=== PATIENT | female | born 1960 | race Caucasian/White ===

== ENCOUNTER 2019-09-27 13:25 | Emergency (ER) | payer BC, SELFPAY ==
--- NOTE | 2019-09-27 13:34 | ED.LOWEXIN ---
HPI - Extremity Injury (Lower) General Chief Complaint: Extremity Injury, Lower Stated Complaint: rolled left ankle, wound R knee Time Seen by Provider: 09/27/19 13:30 Source: patient Mode of arrival: Ambulatory Limitations: no limitations History of Present Illness HPI Narrative: 59-year-old female nonsmoker with noncontributory medical history presents with a chief complaint of left ankle injury suffered 1 hour prior to arrival. She states she was walking and inverted her left ankle and then fell forward, also scraping her right knee. She denies any head neck or back pain. She has full recall of the event. She denies any numbness, tingling or weakness. Her tetanus is current. She has pain with ambulation and improvement with rest. Related Data Allergies Allergy/AdvReac Type Severity Reaction Status Date / Time Sulfa (Sulfonamide Allergy Verified 09/27/19 13:45 Antibiotics) Review of Systems Constitutional Constitutional: Denies chills, Denies fatigue, Denies fever(s), Denies frequent falls, Denies lethargy and Denies weakness Eyes Eyes: Denies change in vision, Denies eye discharge, Denies irritation and Denies loss of vision ENT Ears, Nose, Mouth, and Throat: Denies change in voice, Denies dizziness, Denies neck pain, Denies sore throat and Denies throat swelling Cardiovascular Cardiovascular: Denies chest pain, Denies irregular heart rhythm, Denies lightheadedness, Denies palpitations, Denies dyspnea, Denies dyspnea on exertion and Denies orthopnea Respiratory Respiratory: Denies cough, Denies dyspnea, Denies dyspnea on exertion and Denies wheezing Gastrointestinal Gastrointestinal: Denies abdominal pain, Denies change in bowel habits, Denies diarrhea, Denies nausea and Denies vomiting Genitourinary Genitourinary: Denies hematuria, Denies flank pain, Denies urinary incontinence and Denies urinary urgency Musculoskeletal Musculoskeletal: Denies back pain, Reports joint swelling, Reports limited range of motion, Denies muscle weakness, Denies neck pain, Denies numbness and Denies tingling Integumentary/Breasts Skin/Breast: Denies pruritus, Denies erythema, Denies rash and Reports wounds Neurologic Neurologic: Denies behavioral changes, Denies confusion, Denies dizziness, Denies frequent falls, Denies loss of vision, Denies numbness, Denies tingling and Denies weakness Psychiatric Psychiatric: Denies anxiety, Denies behavioral changes, Denies confusion, Denies depression, Denies homicidal ideation and Denies suicidal ideation Endocrine Endocrine: Denies fatigue, Denies flushing and Denies palpitations Hematologic/Lymphatic Hematologic/Lymphatic: Denies easy bruising Allergic/Immunologic Allergic/Immunologic: Denies urticaria, Denies throat swelling and Denies wheezing Patient History Social History Smoking Status: Unknown if ever smoked Exam Narrative Exam Narrative: GEN: 59-year-old female appears stated age AOx3 and in mild distress EYES: Pupils are equal, round, and reactive to light and accommodation. Extraoccular muscles are intact bilaterally. There is no subconjunctival hemorrhage or exudate. CHEST: Lungs are clear to auscultation bilaterally and free of wheezes, rales, or rhonchi. Heart rate is regular rhythm, there are no murmurs, clicks, rubs, or gallops. There is no chest wall tenderness. ABD: Abdomen is soft and nontender. There is no guarding or rebound. Bowel sounds are normal in all 4 quadrants. There is no mass or organomegaly. EXT: Left ankle has decreased range of motion secondary to pain with noted swelling over lateral malleolus. Closed and neurovascularly intact. Additional superficial abrasion on anterior right knee overlying patella with no bony tenderness SKIN: Warm, pink, and dry. No erythema or rash Initial Vital Signs Initial Vital Signs: Vital Signs Temperature 98.5 F 09/27/19 13:40 Pulse Rate 92 H 09/27/19 13:40 Respiratory Rate 14 09/27/19 13:40 Blood Pressure 143/82 H 09/27/19 13:40 Pulse Oximetry 100 09/27/19 13:40 Procedures Orthopedic Splinting/Casting Injury #1: Side: left Lower Extremity Injury Location: ankle Lower Extremity Immobilizer: AirCast Course Orders Ordered: ED Orders 09/27/19 13:38 XR ankle LT min 3V Stat Discontinued Medications Bacitracin (Bacitracin) 1 applic TOP NOW ONE Stop: 09/27/19 14:27 Bacitracin (Bacitracin) 1 applic TOP NOW ONE Stop: 09/27/19 14:33 Consultations Consultation #1: On-call orthopedics consulted. Recommends air splint if possible, weight-bearing as tolerated, follow-up in his clinic Vital Signs Vital signs: Vital Signs - 8 hr 09/27/19 13:40 09/27/19 14:28 Temperature 98.5 F 97.2 F L Pulse Rate 92 H 61 Respiratory Rate 14 16 Blood Pressure 143/82 H 135/68 Pulse Oximetry 100 98 Discharge Plan Departure Patient Disposition: Home Clinical Impression: Ankle sprain and strain Instructions: DI for Ankle Sprain Activity Restrictions/Additional Instructions: *You have been diagnosed with [left ankle sprain with possible small avulsion fracture] *What to do: *Take medications as directed: Tylenol or Motrin for pain *Follow up with [facility], call for an appointment. Let them know you were seen in the Emergency Department and that we ask that you be seen in follow up *Return to ER if you should have any new, worsening or concerning symptoms Weight-bearing as tolerated Referrals: Gera Gerardo MD [Physician] - ED Sign-out [facility]ign ED Attending Shannonature Attestation: I was immediately available in the department for consultation. This documentation has been reviewed and I agree with assessment and plan. Supervised by Gary Jay DO
--- NOTE | 2019-09-27 13:38 | DI.RAD.S_ITS ---
PROCEDURE: XR ANKLE LT MIN 3V INDICATIONS: lateral ankle pain, swelling, inversion injury TECHNIQUE: 3 views of the ankle were acquired. COMPARISON: None. FINDINGS: Bones: There may be a subtle avulsion fracture at the lateral malleolus. Soft tissues: There is lateral malleolar soft tissue swelling. There is a small tibiotalar joint effusion. Achilles tendon appears normal. IMPRESSION: Questionable subtle avulsion fracture of the lateral malleolus and overlying soft tissue swelling. Approved by: Deanne De Los Santos M.D. on 09/27/2019 at 13:59
[2019-09-27 13:40] VITALS: BP 143/82; PULSE 92; RESP 14; TEMP 36.9; O2SAT 100; BMI 23.6
[2019-09-27 14:28] VITALS: BP 135/68; PULSE 61; RESP 16; TEMP 36.2; O2SAT 98
== END 2019-09-27 14:43 | disposition home or self-care (01) ==
PROVIDERS: Emergency Provider Emergency Medicine
DX: S93.402A Sprain of unspecified ligament of left ankle, initial encounter (principal); S96.912A Strain of unspecified muscle and tendon at ankle and foot level, left foot, initial encounter; W18.42XA Slipping, tripping and stumbling without falling due to stepping into hole or opening, initial encounter
CPT/HCPCS: 73610; 99283

== ENCOUNTER 2023-10-28 10:00 | Emergency (ER) | payer BC, SELFPAY ==
--- NOTE | 2023-10-28 10:06 | DI.RAD.S_ITS ---
PROCEDURE: XR CHEST 1V INDICATIONS: chest pain TECHNIQUE: One view of the chest was acquired. COMPARISON: None. FINDINGS: Surgical changes and devices: None. Lungs and pleura: Lungs are clear. No pleural effusions or pneumothorax. Mediastinum: Mediastinal contours appear normal. Heart size is normal. Bones and chest wall: No suspicious bony lesions. Overlying soft tissues appear unremarkable. IMPRESSION: No acute cardiopulmonary abnormality is seen. Dictated by: Gera Claudio M.D. on 10/28/2023 at 9:36 Approved by: Gera Claudio M.D. on 10/28/2023 at 9:37
[2023-10-28 10:07] VITALS: BP 139/75; PULSE 90; RESP 18; TEMP 36.3; O2SAT 100; BMI 23.0
[2023-10-28 10:30] LABS: Add Manual Diff / Slide Review NO; Basophils Absolute Auto 100 /uL (0-100); Basophils Percent Auto 0.8 % (0-2); Eosinophils Absolute Auto 100 /uL (0-450); Eosinophils Percent Auto 1.5 % (2-4); Hematocrit 43.9 % (36-46); Hemoglobin 14.3 g/dL (12.0-16.0); Lymphocytes Absolute Auto 1900 /uL (1100-4500); Mean Corpuscular HGB Conc 32.6 % (30-36); Mean Corpuscular Hemoglobin 28.1 PG (26-34); Monocytes Absolute Auto 600 /uL (0-900); Monocytes Percent Auto 7.3 % (3-14); Neutrophils Absolute Auto 5700 /uL (1500-7000); Neutrophils Percent Auto 67.4 % (50-75); Platelet Count 203 X10^3/uL (150-400); Red Cell Distribution Width 12.7 % (11.6-14.8); White Blood Cell Count 8.4 X10^3/uL (4.5-11.0)
--- NOTE | 2023-10-28 10:33 | ED.CHESTPAIN ---
HPI - Chest Pain General Chief Complaint: Chest Pain Stated Complaint: chest and mid back pain Time Seen by Provider: 10/28/23 10:05 Source: patient Mode of arrival: Ambulatory Limitations: no limitations History of Present Illness HPI narrative: Patient is a 63-year-old female who is here for evaluation of chest and back discomfort. She states her symptoms started this morning. She woke up relatively asymptomatic. She stated that she felt like she had some gas pains. She then had 2 bowel movements. Then the chest discomfort started. Not particularly worse with palpation in the front of her chest but she states when they did the chest x-ray prior to my evaluation the board for the chest x-ray did cause her to have the back pain. No abdominal pain. No nausea or vomiting. No fevers. No lower extremity swelling. No shortness of breath. No cough. Related Data Previous Rx's Medication Instructions Recorded lidocaine 4 % topical gel 1 applic topical BID-QID PRN pain 12/28/20 #30 grams Allergies Allergy/AdvReac Type Severity Reaction Status Date / Time Sulfa (Sulfonamide Allergy Verified 10/19/21 18:49 Antibiotics) Review of Systems Review of Systems Narrative: See HPI Patient History Social History Smoking Status: Never smoker Smoking Status: Never smoker alcohol intake frequency: holidays/special occasions only Substance Use Type: does not use Exam Initial Vital Signs Initial Vital Signs: Vital Signs Temperature 97.4 F L 10/28/23 10:07 Pulse Rate 90 10/28/23 10:07 Respiratory Rate 18 10/28/23 10:07 Blood Pressure 139/75 10/28/23 10:07 Pulse Oximetry 100 10/28/23 10:07 Oxygen Delivery Method Room Air 10/28/23 10:07 Const General: cooperative, comfortable and No ill appearing HENWA Head: normal to inspection and normocephalic Resp Effort & Inspection: normal respiratory effort Auscultation: clear to auscultation bilaterally Cardio Rate: regular rate Rhythm: regular rhythm Skin General: no rashes or lesions noted Neuro General: patient alert, patient awake and moves all extremities Speech: speech normal Extrem General: normal to inspection and capillary refill normal Course Orders Ordered: ED Orders 10/28/23 10:06 XR chest 1V Stat EKG-12 Lead Stat 10/28/23 10:23 Complete Blood Count AUTO DIFF Stat Comprehensive Metabolic Panel Stat Lipase Stat Troponin & CK Cardiac Panel Stat 10/28/23 12:29 Troponin & CK Cardiac Panel Stat Vital Signs Vital signs: Vital Signs - 8 hr 10/28/23 10:07 Temperature 97.4 F L Pulse Rate 90 Respiratory Rate 18 Blood Pressure 139/75 Pulse Oximetry 100 Oxygen Delivery Method Room Air MDM - Chest Pain Lab Data Attestation: I reviewed the patient's lab results. 10/28/23 10:23 10/28/23 10:23 Labs: Lab Results 10/28/23 10/28/23 Range/Units 10:23 12:29 WBC 8.4 (4.5-11.0) X10^3/uL RBC 5.10 (4.0-5.2) X10^6/uL Hgb 14.3 (12.0-16.0) g/dL Hct 43.9 (36-46) % MCV 86.0 (80-100) fL MCH 28.1 (26-34) PG MCHC 32.6 (30-36) % RDW 12.7 (11.6-14.8) % Plt Count 203 (150-400) X10^3/uL Neut % (Auto) 67.4 (50-75) % Lymph % (Auto) 23.0 L (25-40) % Aiken % (Auto) 7.3 (3-14) % Eos % (Auto) 1.5 L (2-4) % Baso % (Auto) 0.8 (0-2) % Neut # (Auto) 5700 (1572-0685) /uL Lymph # (Auto) 1900 (2994-0313) /uL Aiken # (Auto) 600 (0-900) /uL Eos # (Auto) 100 (0-450) /uL Baso # (Auto) 100 (0-100) /uL Sodium 139 (137-145) mmol/L Potassium 4.3 (3.4-5.1) mmol/L Chloride 109 H (98-107) mmol/L Carbon Dioxide 23 (22-32) mmol/L BUN 16 (7-17) mg/dL Creatinine 0.64 (0.52-1.04) mg/dL Estimated GFR > 60 (>60) mL/min BUN/Creatinine Ratio 25.0 H (6-22) Glucose 113 H (80-110) mg/dL Calcium 10.1 (8.4-10.2) mg/dL Total Bilirubin 0.5 (0.2-1.3) mg/dL AST 36 (14-36) IU/L ALT 35 H (<35) IU/L Alkaline Phosphatase 78 (38-126) U/L Total Creatine Kinase 128 113 (30-135) U/L Troponin I < 0.012 < 0.012 (0.01-0.034) ng/mL Total Protein 8.4 H (6.3-8.2) g/dL Albumin 4.6 (3.5-5.0) g/dL Globulin 3.8 (1.7-4.1) g/dL Albumin/Globulin Ratio 1.2 (1.0-2.8) Lipase 226 (23-300) U/L Imaging Data Chest x-ray: Radiologist's Impression: PROCEDURE: XR CHEST 1V INDICATIONS: chest pain TECHNIQUE: One view of the chest was acquired. COMPARISON: None. FINDINGS: Surgical changes and devices: None. Lungs and pleura: Lungs are clear. No pleural effusions or pneumothorax. Mediastinum: Mediastinal contours appear normal. Heart size is normal. Bones and chest wall: No suspicious bony lesions. Overlying soft tissues appear unremarkable. IMPRESSION: No acute cardiopulmonary abnormality is seen. ECG Data Attestation: I personally reviewed and interpreted this ECG as follows: Interpretation: Sinus rhythm Ventricular rate is [address] T wave changes MDM Narrative Medical decision making narrative: Troponins negative x2. EKG is unremarkable. Chest x-ray is unremarkable. Low suspicion for ACS. Suspect musculoskeletal because the patient did have a reproduction of the symptoms when she leaned on the x-ray board. Low suspicion for aortic pathology. Will discharge patient home. She understands lack of definitive diagnosis. She was given return precautions. She expressed understanding and agreement. Discharge Plan Departure Patient Disposition: Home Clinical Impression: Atypical chest pain Instructions: DI for Atypical Chest Pain Activity Restrictions/Additional Instructions: Recommend that you continue to take any medications as directed. Contact your primary care doctor for a follow-up and to discuss the indications for a stress test if needed. Return to the emergency department for new or worsening symptoms. Prescriptions: No Action lidocaine 4 % gel 1 applic topical BID-QID PRN (Reason: pain) Qty: 30 0RF Referrals: Ning Young MD [Primary Care Provider] - Stand Alone Forms: Patient Portal/API
[2023-10-28 10:41] LABS: Alanine Aminotransferase 35 IU/L (<35); Albumin 4.6 g/dL (3.5-5.0); Albumin Globulin Ratio 1.2 (1.0-2.8); Alkaline Phosphatase 78 U/L (38-126); Aspartate Aminotransferase 36 IU/L (14-36); Bilirubin Total 0.5 mg/dL (0.2-1.3); Blood Urea Nitrogen 16 mg/dL (7-17); Calcium 10.1 mg/dL (8.4-10.2); Carbon Dioxide 23 mmol/L (22-32); Chloride 109 mmol/L (98-107); Creatine Kinase 128 U/L (30-135); Estimated Glomerular Filt Rate > 60 mL/min (>60); Globulin 3.8 g/dL (1.7-4.1); Glucose 113 mg/dL (80-110); HEMOLYSIS < 15 (0-50); Lipase 226 U/L (23-300); Potassium 4.3 mmol/L (3.4-5.1); Sodium 139 mmol/L (137-145); Total Protein 8.4 g/dL (6.3-8.2)
--- NOTE | 2023-10-28 10:45 | PC.NURSE ---
Pt c/ogas like pain on ULQ/lower chest. Pt states she has been under a lot of stress and states that her BM was normal recently.
[2023-10-28 10:53] LABS: Troponin I < 0.012 ng/mL (0.01-0.034)
[2023-10-28 13:13] LABS: Creatine Kinase 113 U/L (30-135)
[2023-10-28 13:43] LABS: Troponin I < 0.012 ng/mL (0.01-0.034)
[2023-10-28 14:05] VITALS: BP 109/61; PULSE 68; RESP 17; O2SAT 97
== END 2023-10-28 14:08 | disposition home or self-care (01) ==
PROVIDERS: Emergency Provider Emergency Medicine; PCP Internal Medicine
DX: R07.89 Other chest pain (principal); M54.9 Dorsalgia, unspecified
CPT/HCPCS: 36415; 71045; 80053; 82550; 83690; 84484; 85025; 93005; 99283; 99284

== ENCOUNTER → 2024-09-09 07:34 | Outpatient (CLI) | payer OTHER, SELFPAY ==
[2024-09-09 08:12] LABS: Add Manual Diff / Slide Review NO; Basophils Absolute Auto 100 /uL (0-100); Basophils Percent Auto 1.6 % (0-2); Eosinophils Absolute Auto 200 /uL (0-450); Eosinophils Percent Auto 3.5 % (2-4); Hematocrit 41.8 % (36-46); Hemoglobin 13.9 g/dL (12.0-16.0); Lymphocytes Absolute Auto 2000 /uL (1100-4500); Lymphocytes Percent Auto 46.7 % (25-40); Mean Corpuscular HGB Conc 33.2 % (30-36); Mean Corpuscular Hemoglobin 28.6 PG (26-34); Mean Corpuscular Volume 86.2 fL (80-100); Monocytes Absolute Auto 400 /uL (0-900); Monocytes Percent Auto 9.1 % (3-14); Neutrophils Absolute Auto 1700 /uL (1500-7000); Neutrophils Percent Auto 39.1 % (50-75); Platelet Count 210 X10^3/uL (150-400); Red Blood Cell Count 4.85 X10^6/uL (4.0-5.2); Red Cell Distribution Width 12.5 % (11.6-14.8); White Blood Cell Count 4.3 X10^3/uL (4.5-11.0)
[2024-09-09 08:22] LABS: Hemoglobin A1C% w Est Avg Glu 5.5 % (4.0-6.0)
[2024-09-09 08:32] LABS: Alanine Aminotransferase 40 IU/L (<35); Albumin 4.4 g/dL (3.5-5.0); Albumin Globulin Ratio 1.2 (1.0-2.8); Alkaline Phosphatase 87 U/L (38-126); Aspartate Aminotransferase 48 IU/L (14-36); BUN Creatinine Ratio 19.1 (6-22); Bilirubin Total 0.3 mg/dL (0.2-1.3); Blood Urea Nitrogen 13 mg/dL (7-17); C-Reactive Protein Quant < 0.5 mg/dL (<1.0); Calcium 9.8 mg/dL (8.4-10.2); Carbon Dioxide 23 mmol/L (22-32); Chloride 108 mmol/L (98-107); Estimated Glomerular Filt Rate > 60 mL/min (>60); Globulin 3.8 g/dL (1.7-4.1); Glucose 100 mg/dL (80-110); HEMOLYSIS 17 (0-50); Potassium 4.4 mmol/L (3.4-5.1); Sodium 139 mmol/L (137-145); Total Protein 8.2 g/dL (6.3-8.2)
[2024-09-09 08:46] LABS: Vitamin D 25 Hydroxy (D3) 45.6 ng/mL (30.0-100.0)
[2024-09-09 08:49] LABS: Free T4, Direct Thyroxine 0.96 ng/dL (0.78-2.19)
[2024-09-09 09:02] LABS: Thyroid Stimulating Hormone 1.28 uIU/mL (0.47-4.68)
[2024-09-09 09:21] LABS: Vitamin B12 845 pg/mL (239-931)
[2024-09-10 04:15] LABS: Apolipoprotein B 104 mg/dL (<90)
[2024-09-11 13:12] LABS: Antimyeloperoxidase Antibodies <0.2 units (0.0-0.9)
[2024-09-11 14:08] LABS: Cholesterol, Total 203 mg/dL (100-199); HDL-Cholesterol 52 mg/dL (>39); HDL-Particle (Total) 29.6 umol/L (>=30.5); LDL Particle 1559 nmol/L (<1000); LDL Size 21.6 nm (>20.5); LDL-Cholsterol 137 mg/dL (0-99); LP-IR Score 30 (<=45); Small LDL- Particle 447 nmol/L (<=527); Triglycerides 77 mg/dL (0-149)
== END ==
PROVIDERS: PCP Internal Medicine; Referring Provider Internal Medicine; Visit Provider Internal Medicine
DX: Z00.00 Encounter for general adult medical examination without abnormal findings (principal); E78.5 Hyperlipidemia, unspecified
CPT/HCPCS: 36415; 80053; 80061; 82172; 82306; 82607; 83036; 83695; 83704; 84439; 84443; 85025; 86140

== ENCOUNTER 2025-05-18 13:52 | Emergency (ER) | payer OTHER, SELFPAY ==
[2025-05-18 13:58] VITALS: BP 127/69; PULSE 76; RESP 16; TEMP 36.9; O2SAT 98; BMI 24.0
--- NOTE | 2025-05-18 14:10 | DI.US.S_ITS ---
PROCEDURE: US PERIPH VENOUS LOW EXTREM RT
[2025-05-18 15:16] VITALS: BP 137/67; PULSE 72; RESP 16; TEMP 36.7; O2SAT 96
[2025-05-18 18:10] VITALS: BP 130/72; PULSE 67; RESP 14; O2SAT 98
--- NOTE | 2025-05-18 18:50 | ED_ITS ---
HPI - Extremity Problem
--- NOTE | 2025-05-18 18:50 | ED.EXTPRO ---
HPI - Extremity Problem General Chief complaint: Extremity Problem,Nontraumatic Stated complaint: Pain of RT knee-unexplained. Worried blood clot Time Seen by Provider: 05/18/25 14:10 Source: patient Mode of arrival: Ambulatory History of Present Illness HPI Narrative: 64-year-old female who has been in mobile watching over her son who has been hospitalized for the past 3 months and noticed a little more strain in her right upper calf area. She does not complain of any unilateral edema on or other symptoms. No shortness of breath no chest pain. Related Data Previous Rx's ?Medication ?Instructions ?Recorded lidocaine 4 % topical gel 1 applic topical BID-QID PRN pain 12/28/20 #30 grams Allergies Allergy/AdvReac Type Severity Reaction Status Date / Time Sulfa (Sulfonamide Allergy Verified 10/19/21 18:49 Antibiotics) Review of Systems Review of Systems ROS Unobtainable: All systems reviewed & are unremarkable except as noted in HPI and below Patient History Social History Smoking Status: Never smoker Smoking Status: Never smoker alcohol intake frequency: holidays/special occasions only Exam Narrative Exam Narrative: General: Patient appears to be in no acute distress, acting appropriately Head: normocephalic, atraumatic, HEENT: Pupils equal round reactive, eyes tracking well, neck supple, no JVD Heart: regular rate and rhythm, no murmurs, rubs, or gallops heard Lungs: clear to auscultation, no adventitious sounds Abdomen: soft , nontender, nondistended, positive bowel sounds Neurological: no focal neurological signs, moving all extremities well, alert and oriented x3, Psych: good judgment ,good insight, mood is normal. Initial Vital Signs Initial Vital Signs: Vital Signs Temperature 98.4 F 05/18/25 13:58 Pulse Rate 76 05/18/25 13:58 Respiratory Rate 16 05/18/25 13:58 Blood Pressure 127/69 05/18/25 13:58 Pulse Oximetry 98 05/18/25 13:58 Oxygen Delivery Method Room Air 05/18/25 13:58 Course Orders Ordered: ED Orders 05/18/25 14:10 perip venous low extrem rt Stat Vital Signs Vital signs: Vital Signs - 8 hr 05/18/25 13:58 05/18/25 15:16 05/18/25 18:10 Temperature 98.4 F 98.1 F Pulse Rate 76 72 67 Respiratory Rate 16 16 14 Blood Pressure 127/69 137/67 130/72 Pulse Oximetry 98 96 98 Oxygen Delivery Method Room Air Room Air Room Air MDM - Extremity (Nontraumatic) Imaging Data US - DVT: Radiologist's Impression: No findings of lower extremity DVT. MDM Narrative Medical decision making narrative: 64-year-old female with concerns over the right lower extremity discomfort after being immobile for a prolonged period of time. Patient reassured that the ultrasound did not reveal a DVT at this time. She is more likely dealing with a strain of the muscle. Patient given some advice for stretching and advised to use [id number] NSAIDs for pain relief. Follow up if having any shortness of breath or new or worsening symptoms Discharge Plan Departure Patient Disposition: Home Clinical Impression: Strain of right calf muscle Instructions: Calf Muscle Strain Activity Restrictions/Additional Instructions: Continue to stretch out your legs and be as mobile as possible. Come back sooner if having more shortness of breath, chest pain or more one-sided swelling. Prescriptions: No Action lidocaine 4 % gel 1 applic topical BID-QID PRN (Reason: pain) Qty: 30 0RF Referrals: Ning Young MD [Primary Care Provider, Internal Medicine] Stand Alone Forms: Patient Portal/API
== END 2025-05-18 18:56 | disposition home or self-care (01) ==
PROVIDERS: Emergency Provider Family Medicine; PCP Internal Medicine
DX: S86.911A Strain of unspecified muscle(s) and tendon(s) at lower leg level, right leg, initial encounter (principal)
CPT/HCPCS: 93971; 99281; 99283